=== PATIENT | female | born 1975 | race Two or more races ===

== ENCOUNTER 2019-05-18 11:50 | Day surgery (SDC) | payer OTHER | END 2019-05-19 02:25 | disposition home or self-care (01) | LOC: CIR.AMB 11:50 | DX: C53.8 Malignant neoplasm of overlapping sites of cervix uteri (principal) ==

== ENCOUNTER 2025-01-04 09:45 | Inpatient (IN) | payer OTHER ==
[~2025-01-04] VITALS: Ht 154.9 cm; Wt 55.8 kg
[2025-01-04 12:53] VITALS: BP 115/79
[2025-01-11] MEDS ORDERED: VISTASEAL DUAL APPICATOR 1 EACH APPL TOP ONE (10:15)
[2025-01-11] MEDS ORDERED: METRONIDAZOLE/SODIUM CHLORIDE 500 MG/100 ML PIGGYBACK IV SCH (10:15)
[2025-01-11] MEDS ORDERED: LIDOCAINE HCL 1%/EPINEPHRINE 20ML VIAL IJ ONE (10:15)
[2025-01-11] MEDS ORDERED: BUPIVACAINE HCL 30 ML VIAL IJ ONE (10:15)
[2025-01-11] MEDS ORDERED: SUGAMMADEX SODIUM 200 MG/2 ML VIAL IV ONE (10:15)
[2025-01-11] MEDS ORDERED: THROMBIN,HU/FIBRINOGEN/CALCIUM 10 ML SYRINGE TOP ONE (10:15)
[2025-01-11] MEDS ORDERED: POVIDONE-IODINE 118 ML BOTT TOP ONE (10:15)
[2025-01-11] MEDS ORDERED: CEFTRIAXONE SODIUM 2,000 MG VIAL IV SCH (10:15)
[2025-01-11] MEDS ORDERED: KETOROLAC TROMETHAMINE 60 MG VIAL IM ONE (11:30)
[2025-01-11] MEDS ORDERED: MORPHINE SULFATE 4 MG/ML CARTRIDGE IV SCH (13:00)
[2025-01-11 14:37] VITALS: BP 101/64; O2SAT 98
[2025-01-11 17:09] VITALS: BP 103/64; O2SAT 99
[2025-01-11] MEDS ORDERED: ENOXAPARIN SODIUM 40 MG/0.4 ML SYRINGE SUBCUTANEO NR (22:00)
[2025-01-11 23:53] LABS: BASO % 0.2 % (0.1-1.2); EOS # 0.03 (0.04-0.54); EOS % 0.3 % (0.7-7.0); LYMPH # 1.50 (1.18-3.74); LYMPH % 16.1 % (19.3-53.1); MEAN PLATELET VOLUME 9.80 fl (9.4-12.4); MONO # 0.84 (0.24-0.82); MONO % 9.0 % (4.7-12.5); NEUT # 6.92 (1.56-6.13); NEUT % 74.2 % (34.0-71.1); RED CELL DISTRIBUTION WIDTH 15.9 % (11.6-14.4)
[2025-01-12 00:30] VITALS: BP 106/62; O2SAT 98
[2025-01-12] MEDS ORDERED: MORPHINE SULFATE 4 MG/ML CARTRIDGE IV STA (05:28)
[2025-01-12] MEDS ORDERED: MORPHINE SULFATE 4 MG/ML CARTRIDGE IV PRN (05:30)
[2025-01-12] MEDS ORDERED: OxyCODONE HCL 5 MG TABLET (ROXICODONE) PO SCH (06:00)
[2025-01-12] MEDS ORDERED: ACETAMINOPHEN 325 MG TABLET PO SCH (06:00)
[2025-01-12] MEDS ORDERED: DOCUSATE SODIUM 100MG CAP PO SCH (06:00)
[2025-01-12 08:00] VITALS: BP 96/60; O2SAT 98
[2025-01-12] MEDS ORDERED: SIMETHICONE 125 MG CAPSULE PO SCH (09:00)
[2025-01-12] MEDS ORDERED: IRON FUM,PS/FOLIC ACID/VITC/B3 1 CAP CAPSULE PO SCH (09:00)
[2025-01-12 11:25] LABS: BASO % 0.2 % (0.1-1.2); EOS # 0.05 (0.04-0.54); EOS % 0.4 % (0.7-7.0); LYMPH # 1.26 (1.18-3.74); LYMPH % 11.3 % (19.3-53.1); MEAN PLATELET VOLUME 9.50 fl (9.4-12.4); MONO # 0.94 (0.24-0.82); MONO % 8.4 % (4.7-12.5); NEUT # 8.83 (1.56-6.13); NEUT % 79.3 % (34.0-71.1); RED CELL DISTRIBUTION WIDTH 15.9 % (11.6-14.4)
[2025-01-12] MEDS ORDERED: KETOROLAC TROMETHAMINE 30 MG VIAL IV NR (12:15)
[2025-01-12] MEDS ORDERED: [UNRECOGNIZED DRUG - MIXTURE] PO SCH (13:00)
[2025-01-12 16:00] VITALS: BP 100/63; O2SAT 99
[2025-01-12] MEDS ORDERED: POLYETHYLENE GLYCOL 3350 17 GM BLIST.PACK PO SCH (21:00)
[2025-01-12 23:58] VITALS: BP 100/68; O2SAT 100
[2025-01-13 06:48] LABS: BASO % 0.3 % (0.1-1.2); EOS # 0.11 (0.04-0.54); EOS % 1.4 % (0.7-7.0); LYMPH # 1.30 (1.18-3.74); LYMPH % 16.5 % (19.3-53.1); MEAN PLATELET VOLUME 10.80 fl (9.4-12.4); MONO # 0.78 (0.24-0.82); MONO % 9.9 % (4.7-12.5); NEUT # 5.65 (1.56-6.13); NEUT % 71.6 % (34.0-71.1); RED CELL DISTRIBUTION WIDTH 16.0 % (11.6-14.4)
[2025-01-13 07:00] LABS: BUN CREA RATIO 12.0 (7.0-25.0); CREATININE SERUM 0.58 mg/dL (0.55-1.02); GFR 109.6; GLUCOSE FASTING 100.0 mg/dL (65-100); OSMOLALITY SERUM 285.0 MOSM/KG (275-295)
[2025-01-13 08:00] VITALS: BP 116/70; O2SAT 100
[2025-01-13] MEDS ORDERED: NAPH,MB-DB/K PH,MBDB 1 PKT PACKET PO NR (10:30)
[2025-01-13 16:38] VITALS: BP 109/76; O2SAT 98
[2025-01-13] MEDS ORDERED: CELEBREX200MG PO (17:21)
[2025-01-13] MEDS ORDERED: SIMETHICONE125 M1 PO (17:22)
[2025-01-13] MEDS ORDERED: SENOKOT-S TABL1 EACH PO (17:22)
== END 2025-01-13 19:06 | disposition home or self-care (01) | DRG 742 ==
LOC: SURH 01-11 07:00 → O/R 01-11 07:00 → SURH 01-11 09:45
PROVIDERS: Obstetrics & Gynecology; Specialist; ADMIT Colon & Rectal Surgery; ATTEND Colon & Rectal Surgery
PROC: 0UJD4ZZ Inspection of Uterus and Cervix, Percutaneous Endoscopic Approach (ICD-10-PCS; 2025-01-11)
PROC: 0UT98ZZ Resection of Uterus, Via Natural or Artificial Opening Endoscopic (ICD-10-PCS; principal; 2025-01-11 12:30)
PROC: 0UT78ZZ Resection of Bilateral Fallopian Tubes, Via Natural or Artificial Opening Endoscopic (ICD-10-PCS; 2025-01-11 12:30)
DX: N93.9 Abnormal uterine and vaginal bleeding, unspecified (principal); K56.51 Intestinal adhesions [bands], with partial obstruction